=== PATIENT | female | born 1990 | race African-American/Black ===

== ENCOUNTER 2022-02-13 04:21 | Emergency (ER) | payer BC, OTHER ==
[2022-02-13] MEDS ORDERED: Ketorolac 30 MG/ML SDV IM STA (05:05)
== END 2022-02-13 06:40 | disposition home or self-care (01) ==
LOC: MW.ED 04:21
DX: M25.572 Pain in left ankle and joints of left foot (principal)
CPT/HCPCS: 73610; 73630; 96372; 99283; J1885

== ENCOUNTER 2024-04-11 11:16 | Emergency (ER) | payer BC ==
[2024-04-11] MEDS: Ibuprofen 800 MG Tab PO ONE (12:50)
== END 2024-04-11 15:59 | disposition home or self-care (01) ==
LOC: MW.ED 11:16
DX: S86.112A Strain of other muscle(s) and tendon(s) of posterior muscle group at lower leg level, left leg, initial encounter (principal); Z86.16 Personal history of COVID-19; Z79.899 Other long term (current) drug therapy; Z75.8 Other problems related to medical facilities and other health care; X50.9XXA Other and unspecified overexertion or strenuous movements or postures, initial encounter
CPT/HCPCS: 76881; 99283; A9270